=== PATIENT | male | born 1995 | race Caucasian/White ===

== ENCOUNTER → 2018-11-22 14:35 | Outpatient (CLI) | payer OTHER, SELFPAY ==
[2018-11-22 16:30] LABS: Hepatitis B Surface Antigen NEGATIVE s/c (NEGATIVE)
[2018-11-22 16:49] LABS: HIV 1 and 2 Antibody NEGATIVE (NEGATIVE); Hep C Virus Ab w/Reflex Quant NEGATIVE s/c (NEGATIVE)
[2018-11-22 17:52] LABS: Urine N gonorrhoeae NOT DETECTED
[2018-11-22 18:16] LABS: Urine Chlamydia NOT DETECTED
[2018-11-25 14:46] LABS: HSV 1 IgM Screen Negative (Negative); HSV 2 IgM Screen Negative (Negative)
[2018-11-27 06:24] LABS: RPR Screen Nonreactive (Nonreactive)
== END ==
PROVIDERS: Physician Assistant; Family Provider Pediatrics; Visit Provider Physician Assistant
DX: Z11.3 Encounter for screening for infections with a predominantly sexual mode of transmission (principal); A64 Unspecified sexually transmitted disease; R36.9 Urethral discharge, unspecified
CPT/HCPCS: 86592; 86694; 86703; 86803; 87340; 87491; 87591

== ENCOUNTER → 2020-12-25 08:30 | Outpatient (CLI) | payer OTHER, SELFPAY ==
[2020-12-25] MEDS: COVID-19 VACC #1, MRNA(MOD) 100 MCG/0.5 ML VIAL IM (08:40)
== END ==
PROVIDERS: Family Provider Pediatrics; Visit Provider Internal Medicine
DX: Z23 Encounter for immunization (principal)
CPT/HCPCS: 0011A; 91301

== ENCOUNTER → 2021-01-30 08:40 | Outpatient (CLI) | payer OTHER, SELFPAY ==
[2021-01-30] MEDS: COVID-19 VACC #2, MRNA(MOD) 100 MCG/0.5 ML VIAL IM (08:46)
== END ==
PROVIDERS: Family Provider Pediatrics; Visit Provider Internal Medicine
DX: Z23 Encounter for immunization (principal)
CPT/HCPCS: 0012A; 91301